=== PATIENT | female | born 1990 | race Hispanic/Latino ===

== ENCOUNTER 2017-05-14 16:54 | Emergency (ER) | payer BC, SELFPAY ==
[2017-05-14 17:29] LABS: Bilirubin Negative (Negative); Blood, Urine Negative (Negative); Clarity CLEAR (Clear); Glucose, Urine (Dipstick) Negative (Negative); Leukocyte Trace (Negative); Nitrite Negative (Negative); Protein, Urine (Dipstick) Negative (Neg-Trace); Specific Gravity, Urine 1.013 (1.002-1.036); Urobilinogen 0.2 mg/dL (0.2-1.0); pH, Urine 7.5 (5.0-9.0)
[2017-05-14 17:31] LABS: Pregnancy Test - Urine (BHCG) Negative (Negative); Pregu Control Background? CLEAR/WHITE (CLR/WHITE); Pregu Control Bar Appear? YES (CONTROL BAR); Specific Gravity 1.013 (1.002-1.036)
[2017-05-14 17:33] LABS: Bacteria/HPF None Seen HPF (None Seen); Hyaline Casts/LPF 0-3 HYALINE CAST LPF (0-3 Hyaline); Pathc Cast-AUWi Flag 0.29 (0-2.49); RBC/HPF 0-3 HPF (0-3); Squamous Epithelial 0-3 HPF (0-3); WBC/HPF 0-3 HPF (0-3)
[2017-05-14 18:18] LABS: #Basophils 0.1 thou/uL (0.0-0.2); #Eosinphils 0.2 thou/uL (0.0-0.7); #Lymphocytes 2.3 thou/uL (1.20-3.40); #Monocytes 0.4 thou/uL (0.11-0.59); #Neutrophils 3.3 thou/uL (1.40-6.50); %Basophils 0.9 % (0.0-1.0); %Lymphocytes 36.5 % (21.0-51.0); %Monocytes 6.6 % (0.0-10.0); %Neutrophils 53.1 % (42.0-75.0); Hemoglobin 13.2 g/dL (12.0-16.0); Mean Corpuscular HGB CONC 34.5 g/dL (32.0-36.0); Mean Corpuscular Hemoglobin 30.6 pg (27.0-31.0); Mean Corpuscular Volume 88.5 fl (81.0-99.0); Mean Platelet Volume 9.5 fL (7.4-10.4); Platelet Count 176 thou/uL (130-400); RBC Distribution Width 11.7 % (11.5-14.5); Red Blood Cell (RBC) Count 4.32 mill/uL (4.20-5.40); White Blood Cell (WBC) Count 6.3 thou/uL (4.8-10.8)
[2017-05-14 18:34] LABS: ALT (SGPT) 11 U/L (8-55); AST (SGOT) 11 U/L (5-34); Alkaline Phosphatase 82 U/L (40-150); Anion Gap 10 mmol/L (10-20); BUN (Urea Nitrogen) 5 mg/dL (7.0-18.7); Bilirubin, Total 0.2 mg/dL (0.2-1.2); Calc. Creatinine Clearance 0 mL/min (70-130); Calcium 8.8 mg/dL (7.8-10.44); Carbon Dioxide 25 mmol/L (22-29); Chloride 106 mmol/L (98-107); Estimated GFR-MDRD Greater than 90; Globulin 3.5 g/dL (2.4-3.5); Glucose 114 mg/dL (70-105); Lipase 19 U/L (8-78); Potassium 4.1 mmol/L (3.5-5.1); Protein, Total 7.5 g/dL (6.0-8.3); Sodium 137 mmol/L (136-145)
[2017-05-14] MEDS ORDERED: Ondansetron HCl/PF 4 MG/2 ML Vial ONE (19:44)
[2017-05-14] MEDS ORDERED: Ketorolac Tromethamine 30 MG/ML VIAL ONE (19:44)
--- NOTE | 2017-05-14 20:20 | ULT ---
RIGHT UPPER QUADRANT ABDOMINAL ULTRASOUND: 05/14/17 COMPARISON: None. HISTORY: Right upper quadrant abdominal pain. TECHNIQUE: Multiplanar dominguez scale and color doppler images are obtained in a right upper quadrant abdominal ultr asound. FINDINGS: The liver is normal in echogenicity without focal lesions or intrahepatic ductal dilatation. There ap pears to be sludge within the gallbladder. No shadowing stones or gallbladder wall thickening are see n. The common bile duct is normal measuring 6 mm. The pancreas cannot be visualized. The right kidney is normal in echogenicity without focal lesions, hydronephrosis, or calculi and measures 11.5 cm in length. IMPRESSION: Gallbladder sludge; otherwise unremarkable exam. POS: [facility]
== END 2017-05-14 20:19 | disposition home or self-care (01) ==
LOC: ERS 16:54
DX: R10.13 Epigastric pain (principal); R10.11 Right upper quadrant pain; K21.9 Gastro-esophageal reflux disease without esophagitis
CPT/HCPCS: 36415; 76705; 80053; 81003; 81015; 81025; 82150; 82550; 83690; 85025; 96361; 96374; 96375; J1885; J2405

== ENCOUNTER 2017-05-24 09:52 | Day surgery (SDC) | payer OTHER ==
[2017-05-23 12:47] VITALS: BMI 34.5
--- NOTE | 2017-05-23 17:43 | HP ---
HISTORY OF PRESENT ILLNESS: Jill Ornelas is a 26-year-old female with 2-week history of epigastric right upper quadrant pain and back radiation. She saw Dr. Tyler Wagner appreciating gallbladder ultra sound on 05/14/2017 showing gallbladder sludge, bile duct 6 mm, with laboratory 05/14/2017 [facility], comprehensive metabolic profile, amylase and lipase, CBC normal. Recommend laparoscopic v ideo cholecystectomy. Risks of infection, bleeding, and visceral injury explained. She consents. TOBACCO: None. ALCOHOL: Rarely. MEDICATIONS: None. PAST SURGICAL HISTORY: Noncontributory. PAST MEDICAL HISTORY: Noncontributory. SOCIAL HISTORY: Patient is , 3, para 3. She works as a cashier assistant in a store. PHYSICAL EXAMINATION: VITAL SIGNS: Weight 171 pounds, 4 feet 11, 122/67, 90 heart rate, 97.7 degrees. HEENT: Unremarkable. LUNGS: Pain, swelling auscultation. CARDIAC: Regular rate and rhythm without murmur or gallop. ABDOMEN: Soft, tenderness in right upper quadrant with guarding, positive Gordillo's. EXTREMITIES: Unremarkable. ASSESSMENT AND PLAN: Acute cholecystitis and cholelithiasis. Recommend laparoscopic video cholecyst ectomy. Risk of infection, bleeding, visceral biliary injury, open procedure discussed. Questions a nswered.
[2017-05-24] MEDS ORDERED: Ketorolac Tromethamine 30 MG/ML VIAL ONE (10:43)
[2017-05-24] MEDS ORDERED: Scopolamine 1.5 mg/72 hour Patch ONE (10:43)
[2017-05-24] MEDS ORDERED: Fentanyl 100 MCG/2 ML VIAL ONE ×2 (10:43→14:13)
[2017-05-24] MEDS ORDERED: Levofloxacin 500 mg/D5W 100 ml Premix Bag ONE (10:43)
[2017-05-24] MEDS ORDERED: Bupivacaine HCl 0.5%/Epinephrine 1:200,000/PF 30 ml Vial ONE (10:46)
[2017-05-24] MEDS ORDERED: Famotidine/PF 20 mg/2ml Vial ONE (11:02)
[2017-05-24] MEDS ORDERED: Midazolam HCl 2 mg/2 ml Vial ONE (11:02)
--- NOTE | 2017-05-24 13:18 | OP ---
DATE OF PROCEDURE: 05/24/2017 PREOPERATIVE DIAGNOSIS: Acute cholecystitis, cholelithiasis. POSTOPERATIVE DIAGNOSIS: Acute cholecystitis, cholelithiasis. PROCEDURE: Laparoscopic video cholecystectomy. SURGEON: Abhishek Cesar M.D. ANESTHESIA: General. Local 0.5 percent Marcaine with epinephrine, 30 mL. FINDINGS: Acute cholecystitis with hydrops of the gallbladder and gallstone obstructing the gallblad gui outlet. PROCEDURE: The patient was taken to the operating room under general anesthesia, abdomen was prepare d with ChloraPrep, draped in routine fashion. Local anesthetic infiltrated in skin and subcutaneous tissue about each port site. Infraumbilical incision made. Pneumoperitoneum to 15 mmHg obtained. T he Veress needle placed with a 5 port and video laparoscope inserted. Right subxiphoid incision made and 11 port placed. Right subcostal incision made mid clavicular, anterior axillary lines and 5 mm ports placed. Fundus of gallbladder grasped and reflected cephalad. Infundibulum grasped, reflected laterally. Cystic artery and duct dissected free. Critical view obtained. Cystic artery and duct doubly clipped proximally, divided, and gallbladder dissected free from the liver bed obtaining good hemostasis prior to division of final peritoneal attachments. Gallbladder was acutely inflamed, thic kened wall, acute inflammatory changes. Gallbladder drained of hydrops fluid. Stone was obstructing the gallbladder outlet. Gallbladder and contents removed and submitted to Pathology. Hemostasis ga ined with the cautery. Irrigant and pneumoperitoneum evacuated. All this instruments removed and al l skin incisions approximated with interrupted subdermal 4-0 Monocryl and DermaGlue applied.
[2017-05-24] MEDS ORDERED: Promethazine HCl 25 MG/ML VIAL ONE (13:50)
[2017-05-24] MEDS ORDERED: HYDROcodone/Acetaminophen 5/325 mg Tablet ONE (15:29)
[2017-05-24] MEDS ORDERED: Lidocaine 1% PF 5 ML VIAL ONE (15:36)
[2017-05-24] MEDS ORDERED: Propofol 200 MG/20 ML VIAL ONE (15:36)
[2017-05-24] MEDS ORDERED: Ondansetron HCl/PF 4 MG/2 ML Vial ONE (15:36)
[2017-05-24] MEDS ORDERED: Glycopyrrolate 0.2 MG/ML 5 ML SYRINGE ONE (15:36)
[2017-05-24] MEDS ORDERED: Dexamethasone 20 MG/5 ML VIAL ONE (15:36)
== END 2017-05-24 16:18 | disposition home or self-care (01) ==
LOC: SDC 09:52
PROVIDERS: ATTEND Specialist
PROC: 0FT44ZZ Resection of Gallbladder, Percutaneous Endoscopic Approach (ICD-10-PCS; principal; 2017-05-24)
DX: K80.10 Calculus of gallbladder with chronic cholecystitis without obstruction (principal)
CPT/HCPCS: 88304; 96374; J0131; J0670; J1100; J1885; J1956; J2001; J2250; J2405; J2550; J2704; J3010; S0028